=== PATIENT | female | born 1945 | race Hispanic/Latino ===

== ENCOUNTER 2021-05-25 13:36 | Outpatient (CLI) | payer MEDICARE ==
[2021-05-26 07:56] LABS: SARS-CoV-2 PCR by NAA Not Detected (NotDetected)
== END 2021-05-25 13:37 | disposition home or self-care (01) ==
LOC: CSHLAB 13:36
DX: Z20.822 Contact with and (suspected) exposure to COVID-19 (principal)
CPT/HCPCS: U0003; U0005

== ENCOUNTER 2021-11-12 07:24 | Day surgery (SDC) | payer MEDICARE ==
[2021-11-12] MEDS ORDERED: Albumin 25% 200 ML ONE (07:51)
[2021-11-12] MEDS ORDERED: Lidocaine 1% PF 5 ML VIAL ONE (07:51)
[2021-11-12] MEDS ORDERED: Sodium Bicarbonate 2.5 MEQ/5 ML VIAL ONE (07:52)
[2021-11-12 08:12] VITALS: TEMP 97.6
[2021-11-12 08:51] LABS: #Monocytes 0.3 10x3/uL (0.0-1.1); %Basophils 0.9 % (0.0-2.0); %Eosinophils 0.3 % (0.0-6.0); %Lymphocytes 32.4 % (18.0-47.0); %Monocytes 8.2 % (0.0-10.0); %Neutrophils 57.9 % (40.0-75.0); Mean Corpuscular HGB CONC 32.2 g/dL (32.0-36.0); Mean Corpuscular Hemoglobin 27.6 pg (27.0-33.0); Mean Corpuscular Volume 85.9 fl (81.6-98.3); Mean Platelet Volume 11.1 fl (7.4-10.4); Platelet Count 82 10x3/uL (150-450); RBC Distribution Width 17.8 % (11.5-14.5); Red Blood Cell (RBC) Count 4.34 10x6/uL (3.90-5.03); White Blood Cell (WBC) Count 3.4 10x3/uL (3.5-10.5)
[2021-11-12 08:52] LABS: INR-International Normal Ratio 1.2; Prothrombin Time 13.4 sec (9.5-12.1)
[2021-11-12 08:57] LABS: ALT (SGPT) 18 U/L (8-55); AST (SGOT) 52 U/L (5-34); Albumin 2.9 g/dL (3.4-4.8); Alkaline Phosphatase 140 U/L (40-110); Anion Gap 11 mmol/L (10-20); BUN (Urea Nitrogen) 16 mg/dL (9.8-20.1); Bilirubin, Total 1.4 mg/dL (0.2-1.2); Calc. Creatinine Clearance 65 mL/min (70-130); Carbon Dioxide 27 mmol/L (23-31); Chloride 104 mmol/L (98-107); Estimated GFR 89; Glucose 94 mg/dL (83-110); Potassium 3.7 mmol/L (3.5-5.1); Protein, Total 7.9 g/dL (5.8-8.1); Sodium 138 mmol/L (136-145)
[2021-11-12 10:50] LABS: BF Color Yellow; Body Fluid Source Paracentesis Fluid; Clarity Clear (Clear); Tube # EDTA
[2021-11-12 11:16] LABS: BF Segmented Neutrophils 22 %; Cell Count Non Hematic 48 %; Lymphocytes 30 %
== END 2021-11-12 09:40 | disposition home or self-care (01) ==
LOC: CSHULT 07:24
PROVIDERS: ATTEND Internal Medicine Gastroenterology
DX: R18.8 Other ascites (principal); K74.60 Unspecified cirrhosis of liver; D62 Acute posthemorrhagic anemia; I10 Essential (primary) hypertension; E78.00 Pure hypercholesterolemia, unspecified; K75.81 Nonalcoholic steatohepatitis (NASH); M35.00 Sjogren syndrome, unspecified; E07.9 Disorder of thyroid, unspecified; Z87.19 Personal history of other diseases of the digestive system; Z88.6 Allergy status to analgesic agent; Z88.8 Allergy status to other drugs, medicaments and biological substances; Z98.890 Other specified postprocedural states
CPT/HCPCS: 49083; 80053; 84157; 85025; 85610; 87070; 87205; 89051; P9047

== ENCOUNTER 2021-12-17 10:14 | Day surgery (SDC) | payer MEDICARE ==
[2021-12-17] MEDS ORDERED: Lidocaine 1% PF 5 ML VIAL ONE (10:35)
[2021-12-17] MEDS ORDERED: Sodium Bicarbonate 2.5 MEQ/5 ML VIAL ONE (10:35)
[2021-12-17] MEDS ORDERED: Albumin 25% 200 ML ONE (10:49)
[2021-12-17 11:10] LABS: #Eosinphils 0.1 10x3/uL (0.0-0.5); #Monocytes 0.3 10x3/uL (0.0-1.1); #Neutrophils 2.2 10x3/uL (1.5-8.4); %Basophils 0.8 % (0.0-2.0); %Eosinophils 2.5 % (0.0-6.0); %Lymphocytes 32.7 % (18.0-47.0); %Monocytes 8.6 % (0.0-10.0); %Neutrophils 55.1 % (40.0-75.0); Hemoglobin 11.4 g/dL (12.0-15.5); Mean Corpuscular Hemoglobin 27.4 pg (27.0-33.0); Mean Corpuscular Volume 85.6 fl (81.6-98.3); Mean Platelet Volume 9.8 fl (7.4-10.4); Platelet Count 85 10x3/uL (150-450); RBC Distribution Width 20.4 % (11.5-14.5); Red Blood Cell (RBC) Count 4.16 10x6/uL (3.90-5.03)
[2021-12-17 11:13] LABS: INR-International Normal Ratio 1.3; Prothrombin Time 13.7 sec (9.5-12.1)
[2021-12-17 11:21] VITALS: BP 121/61; TEMP 97
[2021-12-17 11:25] LABS: ALT (SGPT) 14 U/L (8-55); AST (SGOT) 43 U/L (5-34); Albumin 3.1 g/dL (3.4-4.8); Alkaline Phosphatase 103 U/L (40-110); Anion Gap 10 mmol/L (10-20); BUN (Urea Nitrogen) 14 mg/dL (9.8-20.1); Bilirubin, Total 1.2 mg/dL (0.2-1.2); Calc. Creatinine Clearance 57 mL/min (70-130); Calcium 8.6 mg/dL (7.8-10.44); Carbon Dioxide 27 mmol/L (23-31); Chloride 105 mmol/L (98-107); Estimated GFR 81; Globulin 5.2 g/dL (2.4-3.5); Glucose 85 mg/dL (83-110); Potassium 4.1 mmol/L (3.5-5.1); Protein, Total 8.3 g/dL (5.8-8.1); Sodium 138 mmol/L (136-145)
[2021-12-17 12:10] LABS: BF Color Yellow; Body Fluid Source Ascites Body Fluid; Clarity Clear (Clear); Tube # EDTA
[2021-12-17 12:47] LABS: BF Segmented Neutrophils 14 %; Cell Count Non Hematic 22 %; Lymphocytes 64 %
== END 2021-12-17 11:45 | disposition home or self-care (01) ==
LOC: CSHULT 10:14
PROVIDERS: ATTEND Internal Medicine Gastroenterology
PROC: 0W9G3ZZ Drainage of Peritoneal Cavity, Percutaneous Approach (ICD-10-PCS; principal; 2021-12-17)
DX: R18.8 Other ascites (principal); K74.60 Unspecified cirrhosis of liver; I85.00 Esophageal varices without bleeding; R94.5 Abnormal results of liver function studies
CPT/HCPCS: 49083; 80053; 85025; 85610; 89051; P9047